=== PATIENT | female | born 1995 | race Caucasian/White ===

== ENCOUNTER 2016-12-20 12:28 | Emergency (ER) | payer OTHER ==
[~2016-12-20] VITALS: Wt 49.9 kg
[~2016-12-20 12:28] MED LIST: ATARAX25 MG PO; KEFLEX500 MG PO; MOTRIN600 MG PO; NKHM; PREDNICOT20 MG PO; ZITHROMAX Z PA250 MG PO; ZOFRAN ODT4 MG SL; [UNRECOGNIZED DRUG - OTHER] PO
[2016-12-20] MEDS ORDERED: MEDROL DOSEPAK4 MG PO (12:53)
== END 2016-12-20 13:29 | disposition home or self-care (01) ==
LOC: ED 12:28
DX: L50.9 Urticaria, unspecified (principal)

== ENCOUNTER 2017-07-09 13:34 | Emergency (ER) | payer SELFPAY ==
[~2017-07-09] VITALS: Ht 167.6 cm; Wt 49.9 kg
[~2017-07-09 13:34] MED LIST changes: +MEDROL DOSEPAK4 MG PO
[2017-07-09 14:23] LABS: BILIRUBIN NEGATIVE (NEGATIVE); BLOOD 1+ (NEGATIVE); CLARITY SL CLOUDY (CLEAR); COLOR YELLOW (YELLOW); GLUCOSE NEGATIVE (NEGATIVE); KETONE NEGATIVE (NEGATIVE); LEUKO ESTERASE NEGATIVE (NEGATIVE); NITRITE NEGATIVE (NEGATIVE); PH 5.5 (5.0-9.0); UROBILINOGEN 0.2 E.U./dl (0.2-1.0)
[2017-07-09 14:33] LABS: BACTERIA 1+
[2017-07-09 14:34] LABS: EPITHELIAL CELLS TNTC; MUCOUS TRACE
== END 2017-07-09 14:46 | disposition home or self-care (01) ==
LOC: ED 13:34
PROVIDERS: Registered Nurse
DX: Z11.3 Encounter for screening for infections with a predominantly sexual mode of transmission (principal); R30.0 Dysuria

== ENCOUNTER 2017-09-13 20:46 | Emergency (ER) | payer SELFPAY ==
[~2017-09-13] VITALS: Ht 162.5 cm; Wt 49.9 kg
[2017-09-13] MEDS ORDERED: CEPHALEXIN500 M1 PO (21:33)
== END 2017-09-13 22:00 | disposition home or self-care (01) ==
LOC: ED 20:46
DX: L30.8 Other specified dermatitis (principal)

== ENCOUNTER 2019-10-29 17:36 | Emergency (ER) | payer OTHER ==
[~2019-10-29] VITALS: Ht 162.5 cm; Wt 46.7 kg
[~2019-10-29 17:36] MED LIST changes: +CEPHALEXIN500 M1 PO
[2019-10-29 19:09] LABS: BASO % 0.8 % (0.0-1.0); EOS # 0.1 10*3/uL (0.0-0.4); EOS % 1.5 % (1.0-4.0); HEMATOCRIT 41.5 % (37.0-47.0); LYMPH # 1.8 10*3/uL (1.3-4.4); LYMPH % 37.8 % (27.0-41.0); MEAN CORPUSCULAR HGB 30.7 pg (27.0-31.0); MEAN PLATELET VOLUME 8.7 fl (9.6-12.3); MONO # 0.5 10*3/uL (0.1-1.0); NEUT # 2.3 10*3/uL (2.3-7.9); NEUT % 49.7 % (47.0-73.0); PLATELET COUNT AUTOMATED 382 10*3/uL (130-400); RED BLOOD COUNT 4.46 10*6/uL (4.10-5.10); RED CELL DISTRI WIDTH 12.8 % (0-14.5); WHITE BLOOD COUNT 4.7 10*3/uL (4.8-10.8)
[2019-10-29 19:25] LABS: ALBUMIN 3.8 gm/dl (3.1-4.5); ALKALINE PHOSPHATASE 52 U/L (45-117); BUN 9 mg/dl (7-24); CHLORIDE 106 mmol/L (98-107); CREATININE 0.68 mg/dL (0.55-1.02); POTASSIUM 3.8 mmol/L (3.5-5.1); SGOT/AST 15 IU/L (3-35); SGPT/ALT 20 U/L (12-78); SODIUM 138 mmol/L (136-145); TOTAL PROTEIN 7.5 gm/dL (6.4-8.2)
[2019-10-29 19:27] LABS: B-hCG (QUALITATIVE) NEGATIVE (NEGATIVE)
[2019-10-29 19:40] LABS: CLARITY SL CLOUDY (CLEAR); COLOR YELLOW (YELLOW)
[2019-10-29 19:41] LABS: BILIRUBIN NEGATIVE (NEGATIVE); GLUCOSE NEGATIVE (NEGATIVE); KETONE NEGATIVE (NEGATIVE); SPECIFIC GRAVITY 1.015 (1.005-1.030)
[2019-10-29 19:42] LABS: BACTERIA 1+; BLOOD NEGATIVE (NEGATIVE); EPITHELIAL CELLS TNTC; LEUKO ESTERASE TRACE (NEGATIVE); NITRITE NEGATIVE (NEGATIVE); PH 7.5 (5.0-9.0)
[2019-10-29 19:45] LABS: TROPONIN I < 0.015 ng/ml (<0.045)
[2019-10-29] MEDS ORDERED: VISTARIL25 MG PO (21:11)
[2019-10-29] MEDS ORDERED: KENALOG 0.025%15 GM T (21:11)
== END 2019-10-29 21:30 | disposition home or self-care (01) ==
LOC: ED 17:36
PROVIDERS: Physician Assistant
DX: R55 Syncope and collapse (principal); H53.8 Other visual disturbances; R21 Rash and other nonspecific skin eruption

== ENCOUNTER 2019-12-29 18:46 | Emergency (ER) | payer OTHER ==
[~2019-12-29] VITALS: Wt 47.6 kg
[~2019-12-29 18:46] MED LIST changes: +KENALOG 0.025%15 GM T; +VISTARIL25 MG PO
[2019-12-29] MEDS ORDERED: VISTARIL50 MG PO (21:12)
[2019-12-29] MEDS ORDERED: LEXAPRO10 MG PO (21:12)
== END 2019-12-29 20:52 | disposition home or self-care (01) ==
LOC: ED 18:46
DX: F41.1 Generalized anxiety disorder (principal)

== ENCOUNTER 2020-08-07 14:14 | Emergency (ER) | payer OTHER ==
[~2020-08-07] VITALS: Ht 162.5 cm; Wt 47.6 kg
[~2020-08-07 14:14] MED LIST changes: +LEXAPRO10 MG PO; +VISTARIL50 MG PO
[2020-08-07] MEDS ORDERED: IBUPROFEN600 MG PO (16:14)
[2020-08-07] MEDS ORDERED: DOXYCYCLINE100 M3 PO (16:14)
== END 2020-08-07 16:59 | disposition home or self-care (01) ==
LOC: ED 14:14
DX: L02.215 Cutaneous abscess of perineum (principal); Z79.899 Other long term (current) drug therapy

== ENCOUNTER 2020-09-22 07:16 | Emergency (ER) | payer OTHER ==
[~2020-09-22] VITALS: Ht 162.5 cm; Wt 45.4 kg
[~2020-09-22 07:16] MED LIST changes: +DOXYCYCLINE100 M3 PO; +IBUPROFEN600 MG PO
[2020-09-22] MEDS ORDERED: DOXYCYCLINE100 M3 PO (07:48)
[2020-09-22] MEDS ORDERED: ULTRAM50 MG PO (07:54)
== END 2020-09-22 08:15 | disposition home or self-care (01) ==
LOC: ED 07:16
DX: S91.312A Laceration without foreign body, left foot, initial encounter (principal); Z79.899 Other long term (current) drug therapy; X58.XXXA Exposure to other specified factors, initial encounter; Y93.89 Activity, other specified; Y92.89 Other specified places as the place of occurrence of the external cause; Y99.8 Other external cause status

== ENCOUNTER 2021-04-20 18:27 | Emergency (ER) | payer OTHER ==
[~2021-04-20] VITALS: Wt 45.4 kg
[~2021-04-20 18:27] MED LIST changes: +ULTRAM50 MG PO
[2021-04-20] MEDS ORDERED: AUGMENTIN 875875 MG PO (19:09)
== END 2021-04-20 19:25 | disposition home or self-care (01) ==
LOC: ED 18:27
DX: J02.9 Acute pharyngitis, unspecified (principal)